=== PATIENT | male | born 1970 | race Caucasian/White ===

== ENCOUNTER 2020-02-28 14:33 | Outpatient (CLI) | payer OTHER, SELFPAY ==
--- NOTE | 2020-02-28 14:47 | XR_ITS ---
WS: [id number] LATERAL LUMBAR SPINE: 3 view. Lateral radiographs are performed in upright neutral, flexion and extension to the patient's toleranc e. HISTORY: Low back pain. COMPARISON: None available. Normal lumbar alignment. Severe disc space narrowing at L5-S1 with osteophytes. Mild facet joint arth ritis at L5-S1. With flexion and extension there is no significant instability. Taking into considera tion the slight rotation of the vertebral bodies the alignment remains normal. XR/XR lumbar spine f/e only [id number] IMPRESSION: 1. No lumbar spine instability. 2. Severe degenerative disc disease at L5-S1.
== END 2020-02-28 14:34 | disposition home or self-care (01) ==
LOC: RADOUTREAD 14:44 → RADWPI 14:54
PROVIDERS: Visit Provider Nurse Practitioner
DX: M51.37 Other intervertebral disc degeneration, lumbosacral region (principal)
CPT/HCPCS: 72120

== ENCOUNTER 2020-07-19 12:06 | Outpatient (CLI) | payer OTHER, SELFPAY ==
[2020-07-19 12:36] LABS: Basophils # 0.1 10^3/uL (0.0-0.1); Basophils % 0.6 %; Eosinophils # 0.1 10^3/uL (0.0-0.8); Hematocrit 46.8 % (42.0-52.0); Hemoglobin 15.1 g/dL (11.7-16.6); Lymphocytes % 20.9 %; Mean Corpuscular HGB Conc 32.3 g/dL (30.0-36.0); Mean Corpuscular Hemoglobin 29.2 pg (28.0-34.0); Mean Corpuscular Volume 90.3 fL (80-94); Mean Platelet Volume 9.7 fL (7.4-10.4); Monocytes # 0.8 10^3/uL (0.2-0.9); Monocytes % 8.9 %; Neutrophils # 6.32 10^3/uL (1.8-7.7); Nucleated Red Blood Cells % 0 %; Platelet Count 296 10^3/cmm (130-400); Red Blood Count 5.18 10^6/uL (4.1-5.3); White Blood Count 9.3 10^3/uL (4.0-10.0)
[2020-07-19 12:49] LABS: INR 1.05 (0.83-1.21)
[2020-07-19 12:59] LABS: Anion Gap 13.3 (5-19); Blood Urea Nitrogen 16 mg/dL (6-20); Calcium 9.5 mg/dL (8.5-10.5); Carbon Dioxide 28 mmol/L (22-29); Chloride 106 mmol/L (98-107); Glomerular Filtration Rate 89.3 mL/min (90-130); Glucose 99 mg/dL (65-115); Osmolality Calculated 297 mOsm/kg (285-295); Potassium 4.3 mmol/L (3.5-5.1); Sodium 143 mmol/L (136-145)
== END 2020-07-19 12:07 | disposition home or self-care (01) ==
PROVIDERS: PCP Physician Assistant Medical; Visit Provider Internal Medicine Cardiovascular Disease
DX: Z01.818 Encounter for other preprocedural examination (principal); R07.9 Chest pain, unspecified
CPT/HCPCS: 36415; 80048; 85025; 85610

== ENCOUNTER 2020-07-24 10:19 | Inpatient (IN) | payer OTHER, SELFPAY ==
[2020-07-24] VITALS (22 sets, daily range): BP systolic 91–145; BP diastolic 57–92; PULSE 62–81; RESP 14–23; TEMP 36.7–37.1; O2SAT 96; BMI 31.4
--- NOTE | 2020-07-24 07:16 | XACV_ITS ---
Ht: 191 cm Wt: 114 kg BSA: 2.48 m2 Gender: Male : 1970 Exam Priority: Routine Procedure(s): Procedure Description: Diagnostic procedure Procedure Description: Left Heart Catheterization Procedure Description: Left ventriculography Procedure Description: Coronary Angiography Diagnostic Cath Status: Elective Diagnostic Findings * No significant disease noted in the Left Main, LAD, Circumflex, or RCA coronary arteries. * Coronary angiography shows right dominance. Conclusions 1. No significant disease noted in the Left Main, LAD, Circumflex, or RCA coronary arteries. 2. All gaitan are normal. 3. Normal left ventricular systolic function. Ejection fraction of 60%. Recommendations * Continue current medical management and risk factor modification. Diagnostic RX Recommendation: none Ventriculography Ejection Fraction: 60.0 % Left Ventriculography Findings: * Normal left ventricle ejection fraction 60%. Pressures Phase:Rest AO : 113 / 90 ( 102 ) @ 4:49:00 AM 122 / 93 ( 106 ) @ 4:51:00 AM 119 / 78 ( 100 ) @ 5:04:00 AM 128 / 76 ( 102 ) @ 5:04:00 AM LV : 142 / 3 / @ 5:02:00 AM 137 / 8 / @ 5:03:00 AM 137 / 8 / @ 5:04:00 AM Valves Phase:DefaultPhase AV : 18.0 @ 10:10:02 AM 18.0 @ 10:10:02 AM AV Mean Gradient: 13.0 @ 10:10:02 AM Clinical Evaluation EBL: 5mL-10mL Procedural Details Procedure Consent Obtained. Current Diagnosis : Chest Pain. Pre-Procedure Time Out. Identified patient by full name and date of as verbalized by the patient/guarantor. Does the consent match the physician's order: Yes. Accurate & Complete Informed Consent: Yes. Inpatient/Outpatient History & Physical on Chart: Yes. If H&P is completed, is and addenduem needed: Yes; If yes, is the addendum complete: Yes. Visualize and Verify Site with Patient/Guarantor: N/A. Relevant Radiology Images available: Yes. Pre-op teaching completed and patient verbalized understanding. The risks, benefits, and alternatives of sedation and/or procedure were discussed by physician. The patient agrees to continue. Procedure started. [facility] Clinical Fraility Score: 3: Managing Well. 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 Chest Pain Symptom Assessment: Typical Angina Symptoms. Correct patient, site and procedure confirmed by cath team. Current diagnosis: Chest Pain. PERRLA. Strong, equal hand event planner bilaterally. Lungs clear x 5 lobes. IV Site on Arrival: 20 gauge in the left anticubital. IV Fluids: 0.9% NaCl at KVO. 0 mL infused prior to labor and delivery registered nurse. Pre Procedural Pulses: right posterior tibial was 2+. Pre Procedural Pulses: left dorsalis pedis was Doppled. Pre Procedural Pulses: left posterior tibial was Doppled. Pre Procedural Pulses: left posterior tibial was 1+. Pre Procedural Pulses: bilateral radial was 3+. Oxygen started at 2liters/min via nasal canula. right radial was prepped with chloroprep then draped in the usual sterile fashion. right groin was prepped with chloroprep then draped in the usual sterile fashion. Physician notified. Baseline sample Acquired. HR: 59 BPM. Physician arrived. Physician scrubbed in. Immediate Pre-Procedure Time Out. Correct Patient: Yes; Correct Procedure: Yes; Correct Site: Yes; Correct Patient Position: Yes; Correct Supplies: Yes; Dried Flammable Prep: Yes; Blood Products Available: N/A;. Lidocaine 1% infiltrated to the right radial. Arterial access obtained. A 5 malagasy TIG catheter in over wire. Multiple views taken of right coronary artery. Catheter redirected to the LCA. Multiple views taken of left coronary artery. Catheter removed over the exchange wire. A 6 malagasy Angled Pig catheter in over wire. EDP Sample taken: LV 142/3,23; HR: 74 BPM; SpO2: 98%. LV gram performed in LENTZ @ 10 mL/second for a total of 30 mL. EDP Sample taken: LV 137/8,24; HR: 77 BPM; SpO2: 98%. Pullback taken: LV 137/8,25; AO 119/78(100); Mean: 13mmHg, Peak to Peak: 18mmHg, SEP: 17sec/min; HR: 75 BPM; SpO2: 98%. Catheter removed over the exchange wire. TR band placed. Hemostasis obtained. A TR Band was successful obtaining hemostatsis at the Right Radial artery insertion site. Post Procedure: Pulses reassessed and unchanged. PERRLA. Strong, equal hand event planner bilaterally. No VTE prophylaxis required. Medication's Wasted: Other = Versed 1 mg. Medication's Wasted: Other = Fentanyl 50 mcg. Medication's Wasted: Lidocaine 1% = 18 mL. Medication's Wasted: Nitro = 47.5 mcg. Medication's Wasted: Heparin = 1000 units. Total IV fluids: 35 mL. Contrast type used: Omnipaque 300 mgI/mL, 500 mL bottle. Post-op diagnosis: Normal Coronaries. Complications: None. Estimated blood loss: 5mL-10mL. Procedure completed. Vital chart was stopped. Patient transferred by wheelchair to 1st floor. Access Site Site: Right Radial artery Sheath Size: 6 Fr Hemostasis Method: TR Band Hemostasis Success: Successful Procedure Medications Start: 9:33 AM Stop: 9:33 AM Medication: Versed 1 mg and Fentanyl 25 mcg Amount: 1 Route: I.V. Start: 9:40 AM Stop: 9:40 AM Medication: Versed 1 mg and Fentanyl 25 mcg Amount: 1 Route: I.V. Start: 9:43 AM Stop: 9:43 AM Medication: Nitrogylcerin Amount: 50 mcg Route: S.Q. Start: 9:45 AM Stop: 9:45 AM Medication: Nitrogylcerin Amount: 200 mcg Route: I.A. Start: 9:47 AM Stop: 9:47 AM Medication: Heparin Amount: 5000 units Route: I.V. Start: 9:48 AM Stop: 9:48 AM Medication: Versed Amount: 1 mg Route: I.V. I, the attending physician, have reviewed and verified all procedure medications. Yes, all medications given per verbal order History/Risk Factors Hypertension: Yes Dyslipidemia: Yes Peripheral Arterial Disease (PAD): No Myocardial Infarction (VA): No Obesity: No Renal Disease: No Tobacco Use: Current/Recent(w/in 1 year) Prior Interventions PCI: No CABG: No Valve Surgery: No Report Signatures Finalized by Cachorro Galloway MD on 07/31/2020 05:40 PM
[2020-07-24 08:57] LABS: SARS Covid-2 Antigen Negative (Negative)
[2020-07-24] MEDS: diphenhydrAMINE 50 mg Capsule PO (09:03)
--- NOTE | 2020-07-24 09:15 | P.HP_ITS ---
Same Day Surgery H&P Indication for Procedure/HPI DATE OF PROCEDURE: July 24, 2020 CHIEF COMPLAINT/INDICATIONFOR SURGICAL PROCEDURE: Recurrent chest pain despite of optimization of medicine PREOP DIAGNOSIS: Regarding chest pain despite of optimization of medicine PLANNED PROCEDRUE: Operation Date: 07/24/20 08:30 Proposed Procedures p left Cardiac Catheterization 07628 G45.9(Left) - Cachorro Galloway MD 49-year-old male past medical history significant for hypertension hyperlipidemia smokeless tobacco abuse obesity strong family history of coronary artery disease for worsening of shortness of breath chest pain underwent stress test which did not show significant obstructive coronary artery disease. 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 I have detailed discussion with the patient, I have explained all risk benefit and alternative for the procedure. I have explained the risk of major minor bleed, urgent emergent surgery, arrhythmia, stroke, . He is a good candidate for dual antiplatelet therapy. In case of stent placement he will be able to take antiplatelets for couple of years. He would like to proceed with left heart cath. Medications/Allergies* Home Medications Medication Instructions Recorded Confirmed Type allopurinol 100 mg tablet 100 mg PO DAILY 05/17/20 07/24/20 History amlodipine 5 mg tablet 5 mg PO DAILY 05/17/20 07/24/20 History aspirin 325 mg tablet 325 mg PO DAILY 05/17/20 07/24/20 History baclofen 20 mg tablet 20 mg PO DAILY 05/17/20 07/24/20 History hydrocodone 5 mg-acetaminophen 325 1 tab PO BID PRN 05/17/20 07/24/20 History mg tablet rosuvastatin 20 mg tablet 20 mg PO DAILY 05/17/20 07/24/20 History Allergies/Adverse Reactions Allergy/AdvReac Type Severity Reaction Status Date / Time No Known Allergies Allergy Verified 06/19/20 11:42 Current Medications: Generic Name Dose Route Start Last Admin Trade Name Freq PRN Reason Stop Dose Admin Sodium Chloride 1,000 mls @ 50 mls/hr 07/24/20 07:16 07/24/20 09:03 Sodium Chloride 0.9% IV 07/25/20 03:15 Not Given .Q20H ONE Pertinent History/Comorbid Conditions* Medical History (Updated 05/20/20 @ 21:32 by Samantha Landers MD) Hyperlipidemia Hypertension TIA (transient ischemic attack) Family History (Updated 05/17/20 @ 10:10 by Sharona Chinchilla RN) Diabetes CAD (coronary artery disease) Myocardial infarction Stroke Social History Smoking and tobacco status: current every day smoker smokeless tobacco Alcohol intake: current Alcohol intake frequency: holidays/special occasions only Pertinent Exam Findings alert, oriented x 3, clear to auscultation bilaterally, regular rate & rhythm and operative site marked Conscious Sedation Assessment PATIENT ASSESSED PRIOR TO SEDATION, WITH NO CHANGE NOTED: Yes AIRWAY EVAL/ANESTHESIA PLAN: ASA II, Risks, benefits & alternatives of sedation and/or procedure discussed and Patient agrees to continue as planned Recommendations Surgery/Procedure today Coding Level of Care Code Acute Pricing Lead for Liudmila Colon
[2020-07-24] MEDS: sodium chloride 0.9% 1,000 ML 100 ML IV (11:00)
--- NOTE | 2020-07-24 11:11 | PC.NURSE ---
Verbal order from Dr. Galloway to hold amlodipine, continue to monitor VS. Start NS at 100 ml/hr until patient is discharged, RBVO.
--- NOTE | 2020-07-24 11:13 | PC.NURSE ---
Patient to CSU from cathead worker at 1020. 2 nurse verification of insertion site. TR band intact, asymptomatic. Patient A&O, VSS. Patient oriented to room and call light, educated on activity restrictions. Patient verbalized understanding and teach back performed. Nurse to continue to monitor.
--- NOTE | 2020-07-24 14:41 | PC.NURSE ---
TR band off at 1400. Band removed per protocol, patient tolerated well. Site asymptomatic. Dressing applied. Nurse to continue to monitor.
--- NOTE | 2020-07-24 15:15 | PC.NURSE ---
Discharge instructions given per the physician's orders. Patient verbalized understanding of teaching and did not have any further questions. IV has been removed. Patient dressed self. No further needs identified at this time.
== END 2020-07-24 15:15 | disposition home or self-care (01) | DRG 287 ==
LOC: CCL 10:20 → CSU 10:20
PROVIDERS: Admitting Provider Internal Medicine Cardiovascular Disease; PCP Physician Assistant Medical; Visit Provider Internal Medicine Cardiovascular Disease
PROC: 4A023N7 Measurement of Cardiac Sampling and Pressure, Left Heart, Percutaneous Approach (ICD-10-PCS; principal; 2020-07-24 08:30)
DX: R07.9 Chest pain, unspecified (principal); I10 Essential (primary) hypertension; E78.5 Hyperlipidemia, unspecified; F17.220 Nicotine dependence, chewing tobacco, uncomplicated; E66.9 Obesity, unspecified; Z68.31 Body mass index [BMI] 31.0-31.9, adult; Z82.49 Family history of ischemic heart disease and other diseases of the circulatory system; Z86.73 Personal history of transient ischemic attack (TIA), and cerebral infarction without residual deficits
CPT/HCPCS: 36415; 87426; 93452; C1769; C1887; C1894; J1644; J2250; J3010; J3490; J7030; Q0163; Q9967

== ENCOUNTER → 2020-08-01 12:10 | Outpatient (BNVA) | payer OTHER, SELFPAY | PROVIDERS: PCP Physician Assistant Medical; Visit Provider Nurse Practitioner Family | DX: I10 Essential (primary) hypertension (principal); I20.1 Angina pectoris with documented spasm | CPT/HCPCS: 80048 ==

== ENCOUNTER 2022-03-12 06:47 | Outpatient (CLI) | payer OTHER, SELFPAY ==
--- NOTE | 2022-03-12 07:22 | MR_ITS ---
WS: [id number] MRI BRAIN WITHOUT CONTRAST HISTORY: TEMPORAL HEADACHE,TIA,ARTERIAL SPASM COMPARISON: None available. TECHNIQUE: Diffusion imaging, multiplanar T1, T2 and FLAIR imaging obtained. No evidence for acute infarct or hemorrhage. Isbell-white matter differentiation is normal. No remote or acute infarcts are volume loss. Ventricles and extra-axial spaces are normal. No inferior displacement of cerebellar tonsils. The sella turcica and pituitary gland are unremarkabl e. Dural venous sinuses and [place] demonstrate no abnormality on this unenhanced studies. Paranasal sinuses: Clear. Mastoid air cells: Normal. Calvarium and scalp: Intact. MR/MR head wo con* [id number] IMPRESSION: 1. Unremarkable noncontrast MRI brain. 2. No acute infarct or hemorrhage.
== END 2022-03-12 06:48 | disposition home or self-care (01) ==
PROVIDERS: PCP Physician Assistant Medical; Visit Provider Nurse Practitioner Family
DX: R51.9 Headache, unspecified (principal); I73.9 Peripheral vascular disease, unspecified
CPT/HCPCS: 70551

== ENCOUNTER 2023-04-09 12:34 | Outpatient (CLI) | payer OTHER, SELFPAY ==
--- NOTE | 2023-04-09 13:00 | MR_ITS ---
WS: [id number] MRA ANGIOGRAPHY [place] OF [place] HISTORY: G44.001 - Cluster headache syndrome, unspecified, intract... COMPARISON: None available. TECHNIQUE: 3-D MR angiography is performed of the [place]. All images are reviewed including source images. Distal vertebral and basilar arteries are intact with no significant stenosis or plaque. Posterior ce rebral arteries are normal course and caliber. Posterior communicating arteries are hypoplastic and p oorly visualized. Intracranial portion of the internal carotid arteries are normal course and caliber. No significant a therosclerosis, stenosis or aneurysm identified. Middle and anterior cerebral arteries are both paten t with no significant disease. Anterior communicating artery is also normal. IMPRESSION: 1. No evidence for vasculitis or aneurysmal formation within the [place]. 2. Hypoplastic bilateral posterior communicating arteries.
--- NOTE | 2023-04-09 13:00 | MR_ITS ---
WS: [id number] MRI BRAIN WITHOUT CONTRAST HISTORY: G44.001 - Cluster headache syndrome, unspecified, intract... COMPARISON: 03/12/2022 TECHNIQUE: Diffusion imaging, multiplanar T1, T2 and FLAIR imaging obtained. No evidence for acute infarct or hemorrhage. Isbell-white matter differentiation is normal. No prior infarcts or acute infarct. No significant volume loss or significant small vessel ischemic d isease. Temporal lobes are similar to the prior study. No volume loss. Ventricles and extra-axial spaces are normal. No inferior displacement of cerebellar tonsils. The sella turcica and pituitary gland are unremarkabl e. Dural venous sinuses and [place] demonstrate no abnormality on this unenhanced studies. Paranasal sinuses: Clear. Mastoid air cells: Normal. Calvarium and scalp: Intact. IMPRESSION: 1. Unremarkable noncontrast MRI brain. 2. No prior infarct or acute infarct. No small vessel ischemic disease. 3. No significant temporal lobe atrophy.
--- NOTE | 2023-04-09 13:45 | MR_ITS ---
WS: [id number] MRA CAROTID ARTERIES HISTORY: G44.001 - Cluster headache syndrome, unspecified, intract... COMPARISON: None available. TECHNIQUE: 2D [id number] imaging. MRA is also performed with intravenous gadolinium. MIP and sour ce images are reviewed. MultiHance 20 mL IV. Right: Normal. No significant stenosis. No atherosclerotic plaque. Internal and external carotid harsha mihir are widely patent. Left: Normal. No significant stenosis. No atherosclerotic plaque. Internal/external carotid arteries are widely patent. Subclavian Arteries: Centrally no stenosis. Good opacification. Vertebral Arteries: Normal. IMPRESSION: No significant carotid artery stenosis. No occlusions. Normal vertebral arteries.
[2023-04-09] MEDS: gadobenate dimeglumine 20 mL vial IV (14:30)
== END 2023-04-09 12:35 | disposition home or self-care (01) ==
LOC: RAD 12:34
PROVIDERS: PCP Physician Assistant Medical; Visit Provider Specialist
DX: G44.001 Cluster headache syndrome, unspecified, intractable (principal); G45.9 Transient cerebral ischemic attack, unspecified
CPT/HCPCS: 70544; 70548; 70551; A9577

== ENCOUNTER → 2023-04-14 13:09 | Outpatient (BNVA) | payer OTHER, SELFPAY | PROVIDERS: Visit Provider Podiatrist Foot & Ankle Surgery | DX: G57.63 Lesion of plantar nerve, bilateral lower limbs | CPT/HCPCS: 73630 ==